=== PATIENT | male | born 1965 | race Caucasian/White ===

== ENCOUNTER 2017-08-31 06:27 | Day surgery (SDC) | payer BC ==
[2017-08-29 14:34] VITALS: BMI 41.0
--- NOTE | 2017-08-30 17:20 | P.GSHP ---
History of Present Illness H&P Date: 08/31/17 CHIEF COMPLAINT: GERD and colon screen HISTORY OF PRESENT ILLNESS: The patient is a 52-year-old male who presents with gastroesophageal reflux disease and need for colon screen. Upper and lower endoscopy were offered for further evaluation and management. PAST MEDICAL HISTORY: Please see list. PAST SURGICAL HISTORY: Please see list. MEDICATIONS: Please see list. ALLERGIES: Please see list. SOCIAL HISTORY: No illicit drug use FAMILY HISTORY: No reports of Crohn disease or ulcerative colitis. REVIEW OF ORGAN SYSTEMS: CONSTITUTIONAL: No reports of fevers or chills. GI: Denies any blood in stools or constipation. PHYSICAL EXAM: VITAL SIGNS: Stable GENERAL: Well-developed pleasant in no acute distress. HEENT: No scleral icterus. Extraocular movements grossly intact. Moist buccal mucosa. NECK: Supple without lymphadenopathy. CHEST: Unlabored respirations. Equal bilateral excursions. CARDIOVASCULAR: Regular rate and rhythm. Distal 2+ pulses. ABDOMEN: Soft, nondistended. MUSCULOSKELETAL: No clubbing, cyanosis, or edema. ASSESSMENT: 1. Gastroesophageal reflux disease 2. Colon screen. PLAN: 1. Recommend proceeding with an upper and lower endoscopy Past Medical History Past Medical History: Coronary Artery Disease (CAD), Myocardial Infarction ([place]) Additional Past Medical History / Comment(s): Has Right hip pain (about 2-3 times/year needs to have hip popped back in), bilateral foot pain Left =plantar fascitis (wears orthotics in bilateral shoes) Last Myocardial Infarction Date:: 2011 History of Any Multi-Drug Resistant Organisms: None Reported Past Surgical History: Heart Catheterization, Heart Catheterization With Stent, Hernia Repair Additional Past Surgical History / Comment(s): left inguinal hernia Past Anesthesia/Blood Transfusion Reactions: No Reported Reaction Additional Past Anesthesia/Blood Transfusion Reaction / Comment(s): No transfusions to date Date of Last Stent Placement:: 07/17/17 Smoking Status: Former smoker - Past Family History Father Family Medical History: No Reported History Additional Family Medical History / Comment(s): alcoholic & heavy smoker in younger years, Mother Family Medical History: Myocardial Infarction ([place]) Additional Family Medical History / Comment(s): [place] x 2 with stent Brother(s) Additional Family Medical History / Comment(s): alcoholic Sister(s) Family Medical History: No Reported History Medications and Allergies Home Medications Medication Instructions Recorded Confirmed Type Aspirin [Durlaza] 162.5 mg PO HS 07/12/17 08/29/17 History Atorvastatin [Lipitor] 40 mg PO HS 07/12/17 08/29/17 History Clopidogrel [Plavix] 75 mg PO DAILY 07/12/17 08/29/17 History Ezetimibe [Zetia] 10 mg PO DAILY 07/12/17 08/29/17 History Hydrochlorothiazide 12.5 mg PO DAILY 07/12/17 08/29/17 History Nebivolol [Bystolic] 5 mg PO DAILY 07/12/17 08/29/17 History Niacin [Niaspan] 2,000 mg PO HS 07/12/17 08/29/17 History Ubidecarenone [Co Q-10] 200 mg PO DAILY 07/12/17 08/29/17 History Isosorbide Mononitrate ER [Imdur] 15 mg PO DAILY 08/29/17 08/29/17 History Allergies Allergy/AdvReac Type Severity Reaction Status Date / Time No Known Allergies Allergy Verified 08/29/17 13:59
[~2017-08-31 06:27] MED LIST: LACTATED RINGERS 1,000 ML IV SCH
[2017-08-31 06:55] VITALS: RESP 16; TEMP 97.7
[2017-08-31] MEDS ORDERED: PROPOFOL 10 MG/ML 20 ML VIAL IV ONE (07:22)
--- NOTE | 2017-08-31 07:43 | P.PCN ---
Date of Procedure: 08/31/17 Description of Procedure: PREOPERATIVE DIAGNOSIS: Gastroesophageal reflux disease. Morbid obesity. POSTOPERATIVE DIAGNOSIS: Morbid obesity. Gastric ulcers along the antrum, acute, without bleeding. Gastroesophageal reflux disease. OPERATION: Esophagogastroduodenoscopy with biopsies along antrum. SURGEON: Wilma Quesada MD ANESTHESIA: MAC. INDICATIONS: The patient is a 52-year-old male who presents with a history of reflux disease. Benefits and risks of the procedure were described. Informed consent was obtained. DESCRIPTION: The patient was brought into the endoscopy suite and laid in the left lateral decubitus position. An Olympus gastroscope was passed along the posterior oropharynx down to the distal esophagus where the squamocolumnar junction was encountered at 41 cm from the incisors. The stomach was entered and no bile reflux was found. Additional findings are listed below. Biopsies with cold forceps were obtained of the antrum. The first through third portion of the duodenum was examined and unremarkable. Retroflexion of the scope confirmed Hill grade 2 lower esophageal valve. The squamocolumnar junction LA grade A erosive esophagitis. The stomach was desufflated. The patient tolerated the procedure well. FINDINGS: Squamocolumnar junction 41 cm from the incisors. Diaphragmatic hiatus at 41 cm. Hill grade 2 lower esophageal valve. LA grade A erosive esophagitis. No active duodenitis. Acute superficial gastric ulcers involving the antrum RECOMMENDATIONS: Further recommendations pending results of pathology report. Upper endoscopy as needed.
--- NOTE | 2017-08-31 07:45 | P.PCN ---
Date of Procedure: 08/31/17 Description of Procedure: PREOPERATIVE DIAGNOSIS: Colonoscopy screening. POSTOPERATIVE DIAGNOSIS: Colonoscopy screening. OPERATION: Colonoscopy to the ileocecal valve and appendiceal orifice. SURGEON: Wilma Quesada MD. ANESTHESIA: MAC. INDICATIONS: The patient is a 52-year-old male who presents for his first colonoscopy screening. Benefits and risks were described and informed consent was obtained. DESCRIPTION OF PROCEDURE: The patient had undergone Gatorade, MiraLAX and Dulcolax prep. He had been brought into the operating room and laid in the left lateral decubitus position. After adequate intravenous sedation, the rectum was examined with 2% lidocaine jelly. The prostate was smooth and without abnormalities. No external hemorrhoids were encountered. The rectal tone was within normal limits. No lesions were palpated in the rectal vault. An Olympus colonoscope was advanced until the ileocecal valve and appendiceal orifice were clearly viewed. The prep was good however over 1.5 L of liquid stool was evacuated from the colon. The scope was removed with visualization of each mucosal fold. No scattered diverticulosis was encountered. No colonic polyps were found. No evidence of focal colitis was found. Retroflexion of the scope demonstrated no grade 1 internal hemorrhoids. The colon was desufflated. The patient had tolerated the procedure well. Withdrawal time was over 6 minutes. FINDINGS: No internal hemorrhoids with inflammation No external prolapsed hemorrhoids. No arteriovenous malformations. No adenomatous polyps. No focal colitis. No diverticulosis RECOMMENDATIONS: Lower endoscopy in 10 years per screening guidelines, 2027; however down to 5 years with family history of colon polyps or cancer. Plan - Discharge Summary New Discharge Prescriptions: No Action Ubidecarenone [Co Q-10] 200 mg PO DAILY Nebivolol [Bystolic] 5 mg PO DAILY Clopidogrel [Plavix] 75 mg PO DAILY Ezetimibe [Zetia] 10 mg PO DAILY Hydrochlorothiazide 12.5 mg PO DAILY Niacin [Niaspan] 2,000 mg PO HS Atorvastatin [Lipitor] 40 mg PO HS Aspirin [Durlaza] 162.5 mg PO HS Isosorbide Mononitrate ER [Imdur] 15 mg PO DAILY Polyethylene Glycol 3350 [Miralax] 17 gm PO ONCE #255 gm Bisacodyl [Dulcolax] 5 mg PO DAILY #20 tablet.dr Discharge Medication List Aspirin [Durlaza] 162.5 mg PO HS 07/12/17 [History] Atorvastatin [Lipitor] 40 mg PO HS 07/12/17 [History] Clopidogrel [Plavix] 75 mg PO DAILY 07/12/17 [History] Ezetimibe [Zetia] 10 mg PO DAILY 07/12/17 [History] Hydrochlorothiazide 12.5 mg PO DAILY 07/12/17 [History] Nebivolol [Bystolic] 5 mg PO DAILY 07/12/17 [History] Niacin [Niaspan] 2,000 mg PO HS 07/12/17 [History] Ubidecarenone [Co Q-10] 200 mg PO DAILY 07/12/17 [History] Isosorbide Mononitrate ER [Imdur] 15 mg PO DAILY 08/29/17 [History] Bisacodyl [Dulcolax] 5 mg PO DAILY #20 tablet. 08/30/17 [Rx] Polyethylene Glycol 3350 [Miralax] 17 gm PO ONCE #255 gm 08/30/17 [Rx]
[2017-08-31 08:18] VITALS: BP 105/61; PULSE 84
== END 2017-08-31 08:32 | disposition home or self-care (01) ==
LOC: ORWHC2ENDO 06:27
PROVIDERS: ATTEND Surgery Plastic and Reconstructive Surgery
DX: Z12.11 Encounter for screening for malignant neoplasm of colon (principal); K29.50 Unspecified chronic gastritis without bleeding; K21.9 Gastro-esophageal reflux disease without esophagitis; K25.9 Gastric ulcer, unspecified as acute or chronic, without hemorrhage or perforation; I10 Essential (primary) hypertension; I25.2 Old myocardial infarction; E78.5 Hyperlipidemia, unspecified; Z79.02 Long term (current) use of antithrombotics/antiplatelets; Z87.11 Personal history of peptic ulcer disease; Z87.19 Personal history of other diseases of the digestive system; Z79.82 Long term (current) use of aspirin; E66.01 Morbid (severe) obesity due to excess calories; Z79.899 Other long term (current) drug therapy; Z95.5 Presence of coronary angioplasty implant and graft; Z68.41 Body mass index [BMI] 40.0-44.9, adult
CPT/HCPCS: 88305; 45378; 43239; J2704

== ENCOUNTER → 2018-04-08 | Outpatient (CLI) | payer BC ==
[2018-04-08 09:48] VITALS: BMI 46.4
== END | disposition home or self-care (01) ==
LOC: BARWHC3 08:52
PROVIDERS: ATTEND Surgery Plastic and Reconstructive Surgery
DX: E66.01 Morbid (severe) obesity due to excess calories (principal); Z68.42 Body mass index [BMI] 45.0-49.9, adult; Z71.3 Dietary counseling and surveillance
CPT/HCPCS: 97804

== ENCOUNTER → 2018-11-06 | Outpatient (CLI) | payer BC ==
[2018-11-06 11:34] LABS: Albumin 4.4 g/dL (3.80-4.90); Calcium 9.2 mg/dL (8.7-10.3); Globulin 2.2 g/dL (1.6-3.3); LDL Cholesterol,Calculated 51.6 mg/dL (0.0-131.0); Potassium 4.2 mmol/L (3.5-5.5); Total Bilirubin 0.5 mg/dL (0.2-1.2); Total Protein 6.6 g/dL (6.2-8.2); VLDL Calculation 13.4 mg/dL (5.00-40.00)
== END | disposition home or self-care (01) ==
LOC: LABWHC1 07:04
PROVIDERS: ATTEND Internal Medicine Cardiovascular Disease
DX: I25.10 Atherosclerotic heart disease of native coronary artery without angina pectoris (principal); E78.2 Mixed hyperlipidemia; I11.0 Hypertensive heart disease with heart failure; I50.30 Unspecified diastolic (congestive) heart failure; T82.855D Stenosis of coronary artery stent, subsequent encounter
CPT/HCPCS: 36415; 80053; 80061; 82550

== ENCOUNTER → 2019-07-02 | Outpatient (CLI) | payer BC ==
[2019-07-02 16:45] VITALS: BP 128/81; PULSE 68; RESP 16; TEMP 98.2; BMI 47.5
--- NOTE | 2019-07-02 17:15 | P.HPBAR ---
Bariatric H&P - History & Physicial H&P Date: 07/02/19 History & Physicial: Visit/CC: Discuss criteria Patient initial contact: 03/17/17 Initial weight: 129.591 kg Initial weight in pounds: 285.70 Height: 5 ft 7.5 in Initial BMI: 44.1 Last weight: Current weight: 139.706 kg Current weight in pounds: 308.00 Current BMI: 47.5 [place] body weight (based on NIH guidelines): 68.492 kg Excess body weight loss: The patient is a 54 year-old M who presents for Bariatric Assessment. DATE OF SERVICE: 07/02/2019 REASON FOR CONSULTATION: Bariatric evaluation. HISTORY OF PRESENT ILLNESS: Pavan Hermosillo is a 54-year-old male who comes in with long-standing morbid obesity. He has history of hypertension including myocardial infarction in 2011. He has completed cardiac catheterization. He is looking into gastrectomy procedures. He has sleep apnea and on a CPAP machine. He reports bilateral ankle, hip and bilateral flank pain. He has comes in with more weight weight gain since his last assessment over 2 years ago. He is looking to resume his bariatric evaluation. At height of 5 feet 7.5 inches, his ideal body weight is 158 pounds. Highest weight 307 pounds, BMI 47.5. He comes in with 307 pounds from 285 pounds, 2 years ago. He has gained 22 pounds in 2 years. He is 149 pounds overweight. PAST MEDICAL HISTORY: 1. Morbid obesity due to excess calories 2. Body mass index of 47.5 3. Osteoarthritis of the knees. 4. Osteoarthritis of the hips. 5. Osteoarthritis of the ankle. 6. Obstructive sleep apnea. 7. Hypertensive heart disease. 8. Coronary artery disease 9. Hyperlipidemia 10. History of myocardial infarction 11. Prostate disorder 12. Plantar fasciitis PAST SURGICAL HISTORY: 1. Cardiac catheterization with stent 2. Left inguinal hernia repair HOME MEDICATIONS: 1. Co-Q 10 2. Niacin 3. Bystolic 4. Hydrochlorothiazide 5. Zetia 6. Plavix 7. Lipitor 8. Aspirin ALLERGIES: Denies. SOCIAL HISTORY: No active tobacco use. Past heavy alcohol tobacco use. FAMILY HISTORY: No family history of ulcerative colitis disease. Family with Crohn's disease. Family history of morbid obesity. No lupus in the family. No reports of stomach or esophageal cancer. Family history of cardiac disease. REVIEW OF ORGAN SYSTEMS: CONSTITUTIONAL: At height of 5 feet 7.5 inches, his ideal body weight is 158 pounds. HEENT: Denies any active troubles with vision or hearing. No troubles with swallowing. ENDOCRINE: No diabetes. No hypothyroidism. CARDIOVASCULAR: No reports of palpitations or heart attacks or chest pain. RESPIRATORY: Has daytime somnolence. No asthma. Has obstructive sleep apnea. GI: Denies any bright red blood per rectum. No diarrhea or constipation. MUSCULOSKELETAL: Has lower back pain and joint pain. Has osteoarthritis of the knees. NEURO: No headaches. No seizure disorders. PSYCH: No depression or suicidal ideation. RHEUMATOLOGIC: No lupus. No rheumatoid arthritis. HEMATOLOGIC: Denies any abnormal bleeding or bruising. No personal history of DVTs. SKIN: No rash. No skin cancer. PHYSICAL EXAM: VITAL SIGNS: Height 5 foot 7.5 inches, weight 307 pounds. BMI 47.5 Vital Signs Temp 98.2 F 07/02/19 16:41 Pulse 68 07/02/19 16:41 Resp 16 07/02/19 16:41 BP 128/81 07/02/19 16:41 Pulse Ox GENERAL: Well-developed in no acute distress. HEENT: No scleral icterus. Extraocular movements grossly intact. Hears conversational speech. No nasal drainage. NECK: Supple without lymphadenopathy. CHEST: Nonlabored respirations with equal bilateral excursions. CARDIOVASCULAR: Regular rate and regular rhythm. Distal 2+ pulses. ABDOMEN: Obese, soft, nontender, nondistended. MUSCULOSKELETAL: No clubbing, cyanosis. NEURO: No focal or lateralizing signs. Cranial nerves 2 through 12 grossly within normal limits. PSYCH: Appropriate affect. Alert and oriented to person, place and time. SKIN: Good skin turgor. Well perfused. ASSESSMENT: 1. Morbid obesity due to excess calories. 2. Body mass index of 47.5 3. Osteoarthritis of the knees. 4. Osteoarthritis of the hips. 5. Osteoarthritis of the ankle. 6. Obstructive sleep apnea. 7. Hypertensive heart disease. 8. Coronary artery disease 9. Hyperlipidemia 10. History of myocardial infarction 11. Prostate disorder 12. Plantar fasciitis PLAN: 1. Surgical options including a band, gastric bypass, sleeve gastrectomy were described in detail. Alternatives such as gastric balloon including duodenal switch were described. 2. The [place] bariatric surgical collaborative data and outcomes calculator were described with surgical options. 3. Recommend a bariatric metabolic panel to evaluate for micro- including macronutrient deficiencies. 4. Recommend upper endoscopy. 5. Dietary surveillance and counseling was reviewed, I have asked increased protein intake to at least 80 grams daily. 6. Will need cardiac risk assessment. 7. Recommend medical risk assessment. 8. Psych assessment per insurance guidelines. 9. Follow up upon completion of upper endoscopy. 10. Recommend 12-lead EKG with family history of hypertensive heart disease Thank you for this consultation. Past Medical History Past Medical History: Coronary Artery Disease (CAD), Myocardial Infarction ([place]) Additional Past Medical History / Comment(s): Has Right hip pain (about 2-3 times/year needs to have hip popped back in), bilateral foot pain Left =plantar fascitis (wears orthotics in bilateral shoes) Last Myocardial Infarction Date:: 2011 History of Any Multi-Drug Resistant Organisms: None Reported Past Surgical History: Heart Catheterization, Heart Catheterization With Stent, Hernia Repair Additional Past Surgical History / Comment(s): left inguinal hernia Past Anesthesia/Blood Transfusion Reactions: No Reported Reaction Additional Past Anesthesia/Blood Transfusion Reaction / Comm: No transfusions to date Date of Last Stent Placement:: 07/17/17 Past Psychological History: No Psychological Hx Reported Smoking Status: Former smoker Past Alcohol Use History: Rare Additional Past Alcohol Use History / Comment(s): STARTED SMOKING AT AGE 1986 QUIT AT AGE 18 1/2 SMOKED 2 CIG A DAY Past Drug Use History: None Reported Additional Drug Use History / Comment(s): Quit smoking 1987 (smoked 1/2 pack/day x 2 years) - Past Family History Father Family Medical History: No Reported History Additional Family Medical History / Comment(s): alcoholic & heavy smoker in younger years, Mother Family Medical History: Hypertension, Myocardial Infarction ([place]) Additional Family Medical History / Comment(s): [place] x 2 with stent Brother(s) Additional Family Medical History / Comment(s): alcoholic Sister(s) Family Medical History: No Reported History Surgical - Exam Vital Signs Temp Pulse Resp BP 98.2 F 68 16 128/81 07/02/19 16:41 07/02/19 16:41 07/02/19 16:41 07/02/19 16:41 Bariatric Checklist Checklist: Plan: Checklist: EGD: 1. Hiatal hernia: 2. H. Pylori: HgbA1c: Vitamin D: Smoking: Former smoker Primary care physician referral: Analilia Thomas) Psychiatry clearance: Cardiology clearance: Sleep study: Diet journal: VTE risk score: VTE risk level: Rehab needs at discharge:
== END | disposition home or self-care (01) ==
LOC: BARWHC3 15:12
PROVIDERS: ATTEND Surgery Plastic and Reconstructive Surgery
DX: E66.01 Morbid (severe) obesity due to excess calories (principal); M17.0 Bilateral primary osteoarthritis of knee; M16.0 Bilateral primary osteoarthritis of hip; M19.079 Primary osteoarthritis, unspecified ankle and foot; G47.33 Obstructive sleep apnea (adult) (pediatric); I11.9 Hypertensive heart disease without heart failure; I25.10 Atherosclerotic heart disease of native coronary artery without angina pectoris; E78.5 Hyperlipidemia, unspecified; I25.2 Old myocardial infarction; N42.9 Disorder of prostate, unspecified; M72.2 Plantar fascial fibromatosis; Z68.42 Body mass index [BMI] 45.0-49.9, adult; Z83.49 Family history of other endocrine, nutritional and metabolic diseases; Z87.891 Personal history of nicotine dependence; Z79.02 Long term (current) use of antithrombotics/antiplatelets; Z79.82 Long term (current) use of aspirin; Z79.899 Other long term (current) drug therapy
CPT/HCPCS: 99211